=== PATIENT | female | born 2000 | race Caucasian/White ===

== ENCOUNTER 2020-10-03 16:11 | Emergency (ER) | payer BC, OTHER ==
--- NOTE | 2020-10-03 18:09 | EDM.PDOC ---
ED HPI GENERAL MEDICAL PROBLEM - General Chief Complaint: General Stated Complaint: vomiting and bloody nose Time Seen by Provider: 10/03/20 17:00 Source of Information: Reports: Patient History Limitations: Reports: No Limitations - History of Present Illness INITIAL COMMENTS - FREE TEXT/NARRATIVE: Patient says she has been having nosebleeds on and off since early this afterno on while driving to [place]. She admits that they did some heavy drinking last night does not know why the nosebleed started but she said it started bleeding a lot she got very nauseated and presented here to the ER. She denies any nasal or sinus pain states she has some nausea secondary to the blood. She has no bleeding issues that she knows of her family history of. She denies any heavy NSAID or aspirin usage. She has no other complaints at this time she denies any nasal trauma Onset: Today, Sudden Duration: Minutes:, Hour(s): Severity: Mild Improves with: Reports: None Worsens with: Reports: None Associated Symptoms: Reports: Loss of Appetite, Nausea/Vomiting. 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 Denies: Weakness, Fatigue, Diaphoresis HEENT: Reports: Nosebleed. Denies: Eye Discharge, Nose Pain, Rhinitis, Sinus Problem, Throat Pain, Vertigo Respiratory: Reports: No Symptoms Cardiovascular: Reports: No Symptoms Endocrine: Reports: No Symptoms. Denies: Fatigue GI/Abdominal: Reports: Decreased Appetite, Nausea. Denies: Abdominal Pain, Constipation, Diarrhea : Reports: No Symptoms Skin: Reports: No Symptoms Neurological: Reports: No Symptoms. Denies: Dizziness, Headache, Syncope, Weakness Psychiatric: Reports: No Symptoms Hematologic/Lymphatic: Reports: No Symptoms. Denies: Anemia, Easy Bleeding, Easy Bruising Immunologic: Reports: No Symptoms ED EXAM, GENERAL - Physical Exam Exam: See Below Exam Limited By: No Limitations General Appearance: Alert, WD/WN, No Apparent Distress Eye Exam: Bilateral Eye: EOMI, Normal Inspection, PERRL Ears: Normal External Exam, Normal Canal, Hearing Grossly Normal, Normal TMs Nose: Normal Inspection, Normal Mucosa, Other (Exam to the right nare there noted minimal approximately 2 mm bleeding site at the anterior aspect of the nare. There is no posterior bleeding noted there is no inflammation of the septal all the turbinates the left nare is within normal limits no active bleeding noted). No: No Blood Throat/Mouth: Normal Inspection, Normal Lips, Normal Teeth, Normal Gums, Normal Oropharynx, Normal Voice, No Airway Compromise, Other (No pallor noted). No: Perioral Cyanosis Head: Atraumatic, Normocephalic Neck: Normal Inspection, Supple, Non-Tender, Full Range of Motion Respiratory/Chest: No Respiratory Distress, Lungs Clear, Normal Breath Sounds, No Accessory Muscle Use Cardiovascular: Normal Peripheral Pulses, Regular Rate, Rhythm, No JVD GI/Abdominal: Normal Bowel Sounds, Soft, Non-Tender, No Organomegaly, No Distention. No: Guarding, Rigid, Rebound, Tender Extremities: Normal Inspection, Normal Range of Motion, Normal Capillary Refill, Other (No ecchymosis noted over the joints or skin) Neurological: Alert, Oriented, CN II-XII Intact, Normal Cognition, Normal Gait, Normal Reflexes, No Motor/Sensory Deficits Psychiatric: Flat Affect Skin Exam: Warm, Dry, Intact, Normal Color, No Rash Lymphatic: No Adenopathy Course - Vital Signs Text/Narrative:: The right nare was cauterized with silver nitrate stick at the site bleeding was stopped. Patient was also instructed to insert a 4 x 4 rolled up into the upper lip during her time here in the emergency room. Went back to recheck on the patient no active bleeding noted after 15 minutes. Rechecked 15 minutes after there is bleeding in the left side of the nare on the lateral aspect of the nasal fold there is minimal bleeding from a superficial site approximately 1 x 2 mm it was cauterized with silver nitrate as well bleeding was stopped patient was rechecked after no active bleeding noted. Patient was discharged with instructions if bleeding return to use ice and direct pressure to the nasal area along with rolling up another 4 x 4 and placed under her gums. She was instructed not to use any NSAIDs or aspirin for the next 3 to 4 days. She was instructed if anything changes return here to the emergency room gave verbal understanding Last Recorded V/S: Last Vital Signs Temp 37.1 C 10/03/20 16:15 Pulse 61 10/03/20 16:15 Resp 12 10/03/20 16:15 BP 105/87 10/03/20 16:15 Pulse Ox 98 10/03/20 16:15 Departure - Departure Time of Disposition: 17:55 Disposition: Home, Self-Care 01 Condition: Good Clinical Impression: Epistaxis - Discharge Information *PRESCRIPTION DRUG MONITORING PROGRAM REVIEWED*: No *COPY OF PRESCRIPTION DRUG MONITORING REPORT IN PATIENT ELY: No Instructions: Nosebleed, Adult Referrals: PCP,Unknown [Primary Care Provider] - Forms: ED Department Discharge Additional Instructions: if bleeding occurs again, apply ice and pressure to the nose, hold for an hour long til bleeding stops. If this does not work, call the hospital [phone] or return if any changes. Sepsis Event Note (ED) - Evaluation Sepsis Screening Result: No Definite Risk - Focused Exam Vital Signs: Vital Signs Temp Pulse Resp BP Pulse Ox 10/03/20 16:15 37.1 C 61 12 105/87 98 - Problem List & Annotations (1) Epistaxis SNOMED Code(s): 184161142 Code(s): R04.0 - EPISTAXIS Status: Acute
== END 2020-10-03 17:58 | disposition home or self-care (01) ==
LOC: LL.ED 16:11
DX: R04.0 Epistaxis (principal); Z88.0 Allergy status to penicillin
CPT/HCPCS: 30901; 99283; 99283-25

== ENCOUNTER 2020-10-22 18:17 | Emergency (ER) | payer OTHER, MEDICAID ==
[2020-10-22] MEDS: Meclizine 25 MG Tab PO ONE (19:04)
[2020-10-22 19:14] LABS: ANION GAP 11.1 meq/L (7-15); CHLORIDE,CL 104 mmol/L (98-107); SODIUM,NA 141 mmol/L (136-145)
--- NOTE | 2020-10-22 19:34 | EDM.PDOC ---
ED HPI GENERAL MEDICAL PROBLEM - General Chief Complaint: General Stated Complaint: dizziness, lightheaded Time Seen by Provider: 10/22/20 18:31 Source of Information: Reports: Patient History Limitations: Reports: No Limitations - History of Present Illness INITIAL COMMENTS - FREE TEXT/NARRATIVE: Patient sent to ER for eval by her employer after she had syncopal event at work. Briefly passed out at work station. Has had frontal headache for a few days. Has long history of chronic headaches for years. Worked up in [facility] prior to her moving here. No head CT performed. Mom with significant headache history. No rescue medication. Denies any focal neuro changes. Feels well otherwise. Also dizzy. That is chronic issue too for more than a year. No acute complaints otherwise. Did pass out once in school but possibly due to anxiety. - Related Data Allergies Allergy/AdvReac Type Severity Reaction Status Date / Time amoxicillin Allergy Rash Verified 10/22/20 18:18 Home Meds: Home Meds QUEtiapine [SEROquel] 25 mg PO BEDTIME 10/03/20 [History] Past Medical History Neurological History: Reports: Other (See Below) (chronic issues with headaches and dizziness. No specific triggers.) Psychiatric History: Reports: Anxiety Social & Family History - Tobacco Use Tobacco Use Status *Q: Never Tobacco User Second Hand Smoke Exposure: No - Caffeine Use Caffeine Use: Reports: None - Recreational Drug Use Recreational Drug Use: No ED ROS GENERAL - Review of Systems Review Of Systems: See Below Constitutional: Reports: No Symptoms HEENT: Reports: No Symptoms. Denies: Vertigo, Vision Change Respiratory: Reports: No Symptoms Cardiovascular: Reports: Lightheadedness, Syncope. Denies: Chest Pain, Blood Pressure Problem, Claudication, Dyspnea on Exertion, Edema, Orthopnea, Palpitations, PND GI/Abdominal: Reports: No Symptoms : Reports: No Symptoms Musculoskeletal: Reports: No Symptoms Skin: Reports: No Symptoms Neurological: Reports: Dizziness, Headache, Syncope. Denies: Confusion, Numbness, Paresthesia, Pre-Existing Deficit, Seizure, Tingling, Tremors, Trouble Speaking, Difficulty Walking, Weakness, Change in Speech, Gait Disturbance Psychiatric: Reports: No Symptoms Hematologic/Lymphatic: Reports: No Symptoms Immunologic: Reports: No Symptoms ED EXAM, GENERAL - Physical Exam Exam: See Below Exam Limited By: No Limitations General Appearance: Alert, WD/WN, No Apparent Distress Eye Exam: Bilateral Eye: EOMI, PERRL Ears: Normal External Exam, Normal Canal, Hearing Grossly Normal, Normal TMs Nose: No: Nasal Deformity, Nasal Swelling, Nasal Drainage Throat/Mouth: Normal Lips, Normal Voice, No Airway Compromise Head: Atraumatic, Normocephalic Neck: Normal Inspection, Supple, Non-Tender, Full Range of Motion Respiratory/Chest: No Respiratory Distress, Lungs Clear, Normal Breath Sounds, No Accessory Muscle Use, Chest Non-Tender Cardiovascular: Regular Rate, Rhythm, No Murmur GI/Abdominal: Soft, Non-Tender (Female) Exam: Deferred Rectal (Female) Exam: Deferred Back Exam: Normal Inspection Extremities: Normal Inspection, Normal Range of Motion, Normal Capillary Refill Neurological: Alert, Oriented, CN II-XII Intact, Normal Cognition, Normal Gait, Normal Reflexes, No Motor/Sensory Deficits Psychiatric: Normal Affect, Normal Mood Skin Exam: Warm, Dry, Intact, Normal Color Course - Vital Signs Last Recorded V/S: Last Vital Signs Temp 36.8 C 10/22/20 18:19 Pulse 64 10/22/20 18:19 Resp 16 10/22/20 18:19 BP 125/72 10/22/20 18:19 Pulse Ox 100 10/22/20 18:19 - Orders/Labs/Meds Labs: Laboratory Tests 10/22/20 10/22/20 10/22/20 Range/Units 18:31 18:31 18:54 WBC 11.3 H (4.0-10.2) K/uL RBC 4.72 (3.77-5.09) M/uL Hgb 13.5 (11.7-15.5) g/dL Hct 39.9 (34.0-46.0) % MCV 84.5 (84.0-98.0) fL MCH 28.6 (28.2-33.3) pg MCHC 33.8 (31.7-36.0) g/dL RDW 13.2 (11.2-14.1) % Plt Count 286 (150-350) K/uL Neut % (Auto) 66.6 (45.0-80.0) % Lymph % (Auto) 23.6 (10.0-50.0) % [place] % (Auto) 7.7 (2.0-14.0) % Eos % (Auto) 1.9 (0.0-5.0) % Baso % (Auto) 0.2 (0.0-2.0) % Neut # (Auto) 7.52 H (1.40-7.00) K/uL Lymph # (Auto) 2.66 (0.50-3.50) K/uL [place] # (Auto) 0.87 (0.00-1.00) K/uL Eos # (Auto) 0.22 (0.00-0.50) K/uL Baso # (Auto) 0.02 (0.00-0.20) K/uL Sodium (136-145) mmol/L Potassium (3.5-5.1) mmol/L Chloride (98-107) mmol/L Carbon Dioxide (21.0-32.0) mmol/L Anion Gap (7-15) meq/L BUN (7-18) mg/dL Creatinine (0.51-1.17) mg/dL Est Cr Clr Drug Dosing Estimated GFR (MDRD) mL/min Glucose (70-99) mg/dL Calcium (8.5-10.1) mg/dL Magnesium (1.8-2.4) mg/dL Total Bilirubin (0.2-1.0) mg/dL AST (15-37) U/L ALT (12-78) U/L Alkaline Phosphatase (46-116) IU/L Total Protein (6.4-8.2) g/dL Albumin (3.4-5.0) g/dL Specimen Type Urinvoid Urine Color Yellow Urine Appearance Clear Urine pH 5.5 (5.0-9.0) Ur Specific [place] >= 1.030 (1.005-1.030) Urine Protein Negative (NEGATIVE) mg/dL Urine Glucose (UA) Negative (NEGATIVE) mg/dL Urine Ketones Negative (NEGATIVE) mg/dL Urine Occult Blood Negative (NEGATIVE) Urine Nitrite Negative (NEGATIVE) Urine Bilirubin Negative (NEGATIVE) Urine Urobilinogen 0.2 (0.2-1.0) E.U./dL Ur Leukocyte Esterase Negative (NEGATIVE) Urine RBC Not seen /HPF Urine WBC 5-10 H /HPF Ur Epithelial Cells Few /LPF Urine Bacteria Moderate H (NONE TO FEW) /HPF Urine HCG, Qual Negative 10/22/20 Range/Units 18:54 WBC (4.0-10.2) K/uL RBC (3.77-5.09) M/uL Hgb (11.7-15.5) g/dL Hct (34.0-46.0) % MCV (84.0-98.0) fL MCH (28.2-33.3) pg MCHC (31.7-36.0) g/dL RDW (11.2-14.1) % Plt Count (150-350) K/uL Neut % (Auto) (45.0-80.0) % Lymph % (Auto) (10.0-50.0) % [place] % (Auto) (2.0-14.0) % Eos % (Auto) (0.0-5.0) % Baso % (Auto) (0.0-2.0) % Neut # (Auto) (1.40-7.00) K/uL Lymph # (Auto) (0.50-3.50) K/uL [place] # (Auto) (0.00-1.00) K/uL Eos # (Auto) (0.00-0.50) K/uL Baso # (Auto) (0.00-0.20) K/uL Sodium 141 (136-145) mmol/L Potassium 3.9 (3.5-5.1) mmol/L Chloride 104 (98-107) mmol/L Carbon Dioxide 25.9 (21.0-32.0) mmol/L Anion Gap 11.1 (7-15) meq/L BUN 15 (7-18) mg/dL Creatinine 0.97 (0.51-1.17) mg/dL Est Cr Clr Drug Dosing TNP Estimated GFR (MDRD) > 60 mL/min Glucose 91 (70-99) mg/dL Calcium 8.9 (8.5-10.1) mg/dL Magnesium 1.9 (1.8-2.4) mg/dL Total Bilirubin 0.3 (0.2-1.0) mg/dL AST 15 (15-37) U/L ALT 18 (12-78) U/L Alkaline Phosphatase 85 (46-116) IU/L Total Protein 7.8 (6.4-8.2) g/dL Albumin 4.1 (3.4-5.0) g/dL Specimen Type Urine Color Urine Appearance Urine pH (5.0-9.0) Ur Specific [place] (1.005-1.030) Urine Protein (NEGATIVE) mg/dL Urine Glucose (UA) (NEGATIVE) mg/dL Urine Ketones (NEGATIVE) mg/dL Urine Occult Blood (NEGATIVE) Urine Nitrite (NEGATIVE) Urine Bilirubin (NEGATIVE) Urine Urobilinogen (0.2-1.0) E.U./dL Ur Leukocyte Esterase (NEGATIVE) Urine RBC /HPF Urine WBC /HPF Ur Epithelial Cells /LPF Urine Bacteria (NONE TO FEW) /HPF Urine HCG, Qual Meds: Medications Discontinued Medications Generic Name Dose Route Start Last Admin Trade Name Freq PRN Reason Stop Dose Admin Meclizine HCl 25 mg 10/22/20 18:32 10/22/20 19:04 Meclizine 25 Mg Tab PO 10/22/20 18:33 25 mg ONETIME ONE Administration - Re-Assessments/Exams Free Text/Narrative Re-Assessment/Exam: 10/22/20 19:43 CBC/Chem/UA/HCG performed. HCG negative. Minimal elevation WBC. No focal evidence of acute infection noted. Patient declined additional testing including baseline head CT. Nonfocal exam. Recommend increased water intake as urine was concentrated. Recommend follow up and establishment of care with a local provider for ongoing evaluation of her headaches/dizziness. Patient agreeable with plan. Work excuse given for today. To follow up otherwise as needed if she has additional problems. Departure - Departure Time of Disposition: 19:31 Disposition: Home, Self-Care 01 Condition: Good Clinical Impression: Chronic headaches Qualifiers: Headache type: unspecified Intractability: not intractable Qualified Code(s): R51.9 - Headache, unspecified Syncope Qualifiers: Syncope type: unspecified Qualified Code(s): R55 - Syncope and collapse - Discharge Information *PRESCRIPTION DRUG MONITORING PROGRAM REVIEWED*: No *COPY OF PRESCRIPTION DRUG MONITORING REPORT IN PATIENT ELY: No Instructions: General Headache Without Cause, Syncope, [id number] Forms: ED Department Discharge, ED Return to Work/School Form Additional Instructions: Make appointment with local clinic to continue workup as needed, such as possible baseline head CT, or labs such as Lyme/tick panels. Stay hydrated! Drink more water. Look at diet as we discussed as there can be a lot of triggers for headaches/anxiety in food and snacks. Follow up otherwise as needed if you have additional problems. Sepsis Event Note (ED) - Evaluation Sepsis Screening Result: No Definite Risk - Focused Exam Vital Signs: Vital Signs Temp Pulse Resp BP Pulse Ox 10/22/20 18:19 36.8 C 64 16 125/72 100
== END 2020-10-22 19:40 | disposition home or self-care (01) ==
LOC: LL.ED 18:17
DX: R55 Syncope and collapse (principal); R51.9 Headache, unspecified; Z88.0 Allergy status to penicillin
CPT/HCPCS: 36415; 80053; 81001; 81025; 83735; 85025; 99283; 99284; A9270-GY

== ENCOUNTER 2021-02-10 21:33 | Emergency (ER) | payer MEDICAID ==
--- NOTE | 2021-02-10 22:13 | EDM.PDOC ---
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 LMP was 01/02/2021, took a home test due to missed cycle. It was positive. She has been having breast tenderness but feeling ok. SHe is with a 2 and 3 year old. She was on the pill when she became . She last had intercourse yesterday,. No unusual activity today, but noted wetness at 1900 and checked. Medium dark red blood when she wiped. Put a pantiliner in and 3 hours later it is not 1/2 saturated. Some minimal cramping in the lower abdomen. Normal bowel movement today. She has first OB appointment tomorrow. she otherwise feels fine. no fever, cough, body aches etc Onset: Today Duration: Resolved Prior to Arrival Treatments ALTERATIONS SEWER: Reports: Acetaminophen, Other (see below) Other Treatments ALTERATIONS SEWER: at 1999 today Lower Pelvic Pain Score (Numeric/FACES): 6 - Related Data Allergies Allergy/AdvReac Type Severity Reaction Status Date / Time amoxicillin Allergy Rash Verified 02/10/21 21:39 Home Meds: Home Meds . [No Known Home Meds] 02/10/21 [History] Past Medical History Neurological History: Reports: Other (See Below) (chronic issues with headaches and dizziness. No specific triggers.) Psychiatric History: Reports: Anxiety Social & Family History - Caffeine Use Caffeine Use: Reports: None ED ROS GENERAL - Review of Systems Review Of Systems: See Below Constitutional: Reports: No Symptoms HEENT: Reports: No Symptoms Respiratory: Reports: No Symptoms Cardiovascular: Reports: No Symptoms Endocrine: Reports: No Symptoms : Reports: Other (pelvic cramping with light vaginal spotting) Musculoskeletal: Reports: No Symptoms Skin: Reports: No Symptoms ED EXAM, RENAL/ - Physical Exam Exam: See Below Exam Limited By: No Limitations General Appearance: Alert, WD/WN, No Apparent Distress Eye Exam: Bilateral Eye: EOMI, PERRL Ears: Normal External Exam Nose: Normal Inspection Throat/Mouth: Normal Inspection, Normal Lips, Normal Teeth, Normal Voice Head: Atraumatic, Normocephalic Neck: Normal Inspection, Supple Respiratory/Chest: No Respiratory Distress, Lungs Clear, Normal Breath Sounds Cardiovascular: Normal Peripheral Pulses, Regular Rate, Rhythm, No Edema GI/Abdominal: Normal Bowel Sounds, Soft, Non-Tender, No Organomegaly, No Abnormal Bruit, No Mass. No: Tender (Female) Exam: Deferred Extremities: Normal Inspection Neurological: Alert, Oriented Psychiatric: Normal Affect Course - Vital Signs Last Recorded V/S: Last Vital Signs Temp 38.0 C 02/10/21 23:21 Pulse 83 02/10/21 23:21 Resp 14 02/10/21 23:21 BP 91/53 L 02/10/21 23:21 Pulse Ox 99 02/10/21 23:21 - Orders/Labs/Meds Orders: Active Orders 24 hr Category Date Time Status CHLAMYDIA AND GONORRHEA BY TMA Stat Lab 02/10/21 21:45 Received Labs: Laboratory Tests 02/10/21 02/10/21 Range/Units 21:45 23:10 HCG, Quant 217 mIU/mL Specimen Type Urincc Urine Color Yellow Urine Appearance Clear Urine pH 6.0 (5.0-9.0) Ur Specific [place] >= 1.030 (1.005-1.030) Urine Protein Negative (NEGATIVE) mg/dL Urine Glucose (UA) Negative (NEGATIVE) mg/dL Urine Ketones Negative (NEGATIVE) mg/dL Urine Occult Blood Moderate H (NEGATIVE) Urine Nitrite Negative (NEGATIVE) Urine Bilirubin Negative (NEGATIVE) Urine Urobilinogen 0.2 (0.2-1.0) E.U./dL Ur Leukocyte Esterase Negative (NEGATIVE) Urine RBC 0-5 /HPF Urine WBC 0-5 /HPF Ur Epithelial Cells Few /LPF Urine Bacteria Rare (NONE TO FEW) /HPF Urine Mucus Few H (NEGATIVE) /LPF - Re-Assessments/Exams Free Text/Narrative Re-Assessment/Exam: 02/10/21 22:14 Discussed with patient no ultrasound here tonight. vitals are stable, bleeding is stopped and was minimal. will check Urine, chlamydia and gonorrhea and quant HCG. Will try to get ultrasound set up for her tomorrow. Patient is satisfied with this plan. Departure - Departure Time of Disposition: 23:02 Disposition: Home, Self-Care 01 Condition: Good Clinical Impression: Vaginal bleeding in - Discharge Information *PRESCRIPTION DRUG MONITORING PROGRAM REVIEWED*: No *COPY OF PRESCRIPTION DRUG MONITORING REPORT IN PATIENT ELY: No Instructions: Vaginal Bleeding During , First Trimester Referrals: Arianna Tijerina PA-C [Primary Care Provider] - Forms: ED Department Discharge Additional Instructions: follow up tomorrow with your appointment. Testing for chlamydia gonorrhea are pending. You Quantitative HCG level will need to be follow by your PCP in two d ays. We will try to set up ultrasound for you tomorrow. Radiology will contact you about this Sepsis Event Note (ED) - Evaluation Sepsis Screening Result: No Definite Risk - Focused Exam Vital Signs: Vital Signs Temp Pulse Resp BP Pulse Ox 02/10/21 23:21 38.0 C 83 14 91/53 L 99 - My Orders Last 24 Hours: My Active Orders 02/10/21 21:45 CHLAMYDIA AND GONORRHEA BY TMA Stat - Assessment/Plan Last 24 Hours: My Active Orders 02/10/21 21:45 CHLAMYDIA AND GONORRHEA BY TMA Stat
[2021-02-13 13:47] LABS: C.TRACHOMATIS BY TMA Negative (Negative); N.GONORRHOEAE BY TMA Negative (Negative)
== END 2021-02-10 23:15 | disposition home or self-care (01) ==
LOC: LL.ED 21:33
DX: O20.9 Hemorrhage in early pregnancy, unspecified (principal); Z88.0 Allergy status to penicillin
CPT/HCPCS: 36415; 81001; 84702; 87491; 87591; 99283; 99284

== ENCOUNTER 2021-03-22 18:08 | Emergency (ER) | payer MEDICAID, OTHER ==
[2021-03-22] MEDS ORDERED: Lactated Ringers 1,000 ML IV ONE (18:15)
[2021-03-22] MEDS ORDERED: Sodium Chloride 0.9% 10 ML Syringe FLUSH PRN (18:15)
--- NOTE | 2021-03-22 18:17 | EDM.PDOC ---
ED HPI GENERAL MEDICAL PROBLEM - General Chief Complaint: Gastrointestinal Problem Stated Complaint: abdominal pain Time Seen by Provider: 03/22/21 18:14 Source of Information: Reports: Patient - History of Present Illness INITIAL COMMENTS - FREE TEXT/NARRATIVE: Dawna is a 20 y/o female who presents to the ER with a fever and abdominal pain. She called the clinic today about 4 pm and was advised to come to the ER. She reports having a fever for the last 2 days with it being as high as 103.5 at home. She also has developed periumbilical abdominal pain along with nausea and vomiting and also some diarrhea. She had an ectopic in early February and was hospitalized in [place]. She then tested COVID= on 02-26-2021 and was quarantined. She got better, but is now ill again. Left Abdomen Pain Score (Numeric/FACES): 6 - Related Data Allergies Allergy/AdvReac Type Severity Reaction Status Date / Time amoxicillin Allergy Rash Verified 03/22/21 18:33 Home Meds: Home Meds lamoTRIgine [Lamotrigine] 50 mg PO DAILY 03/22/21 [History] Past Medical History Neurological History: Reports: Other (See Below) (chronic issues with headaches and dizziness. No specific triggers.) Psychiatric History: Reports: Anxiety Social & Family History - Caffeine Use Caffeine Use: Reports: None Review of Systems - Review of Systems Review Of Systems: See Below Constitutional: Reports: Chills, Fever Eyes: Reports: No Symptoms Ears: Reports: No Symptoms Nose: Reports: No Symptoms Mouth/Throat: Reports: No Symptoms Respiratory: Reports: No Symptoms Cardiovascular: Reports: No Symptoms GI/Abdominal: Reports: Abdominal Pain, Diarrhea, Nausea, Vomiting Genitourinary: Reports: No Symptoms Musculoskeletal: Reports: No Symptoms Skin: Reports: No Symptoms Neurological: Reports: No Symptoms Psychiatric: Reports: No Symptoms ED EXAM, GENERAL - Physical Exam Exam: See Below General Appearance: Alert, WD/WN, No Apparent Distress (Young adult female, looks like she doesn't feel well.) Eye Exam: Bilateral Eye: PERRL Ears: Normal External Exam, Hearing Grossly Normal Nose: Normal Inspection, Normal Mucosa Throat/Mouth: Normal Inspection, Normal Lips, Normal Oropharynx, Normal Voice Head: Atraumatic, Normocephalic Neck: Normal Inspection, Supple Respiratory/Chest: No Respiratory Distress, Lungs Clear, Chest Non-Tender Cardiovascular: Normal Peripheral Pulses, Regular Rate, Rhythm, No Murmur GI/Abdominal: Normal Bowel Sounds, Soft, No Distention, Tender (periumbilical region). No: Rebound (Female) Exam: Deferred Rectal (Female) Exam: Deferred Back Exam: Normal Inspection Extremities: Normal Inspection, Normal Range of Motion, No Pedal Edema, Normal Capillary Refill Neurological: Alert, Oriented, CN II-XII Intact, Normal Cognition, Normal Gait, No Motor/Sensory Deficits Psychiatric: Normal Affect, Normal Mood Skin Exam: Warm, Dry, Intact, Normal Color, No Rash Lymphatic: No Adenopathy Course - Vital Signs Text/Narrative:: 1813 The patient was seen by the ALIGNER. Labs ordered. Will obtain an influenza and RSV test, defer COVID since she had a positive test in February and should be out of the window. NS 1 liter ordered along with Fentanyl 100mcg IVP and Zofran 4 mg IVP. 1929 All labs negative. Pain slightly better after meds and IV fluids. Will send home with Zofran ODT and supportive cares. Written instructions were given and the patient left the ER in stable condition. Last Recorded V/S: Last Vital Signs Temp 38.1 C 03/22/21 18:09 Pulse 101 H 03/22/21 19:00 Resp 18 03/22/21 19:00 BP 112/69 03/22/21 19:00 Pulse Ox 98 03/22/21 19:00 - Orders/Labs/Meds Orders: Active Orders 24 hr Category Date Time Status COVID-19/FLU A+B/RSV [MOLEC] Stat Lab 03/22/21 18:15 Ordered CULTURE BLOOD [BC] Stat Lab 03/22/21 18:15 Received CULTURE BLOOD [BC] Stat Lab 03/22/21 18:20 Received STREP SCRN A RAPID W CULT CONF [RM] Stat Lab 03/22/21 19:11 Ordered Sodium Chloride 0.9% [Normal Saline] 1,000 ml Med 03/22/21 18:42 Active IV .BOLUS Sodium Chloride 0.9% [Saline Flush] Med 03/22/21 18:15 Active 10 ml FLUSH ASDIRECTED PRN Blood Culture x2 Reflex Set [OM.PC] Stat Oth 03/22/21 18:15 Ordered Isolation [COMM] Routine Oth 03/22/21 18:40 Active Isolation [COMM] Routine Oth 03/22/21 18:40 Active Saline Lock Insert [OM.PC] Stat Oth 03/22/21 18:15 Ordered Medication Orders Sodium Chloride (Normal Saline) 1,000 mls @ 999 mls/hr IV .BOLUS ONE Stop: 03/22/21 19:42 Last Admin: 03/22/21 18:20 Dose: 999 mls/hr Documented by: JOSE Sodium Chloride (Sodium Chloride 0.9% 10 Ml Syringe) 10 ml FLUSH ASDIRECTED PRN PRN Reason: Keep Vein Open Labs: Laboratory Tests 03/22/21 03/22/21 03/22/21 Range/Units 18:35 18:35 18:35 WBC 6.9 (4.0-10.2) K/uL RBC 4.72 (3.77-5.09) M/uL Hgb 13.2 (11.7-15.5) g/dL Hct 39.7 (34.0-46.0) % MCV 84.1 (84.0-98.0) fL MCH 28.0 L (28.2-33.3) pg MCHC 33.2 (31.7-36.0) g/dL RDW 13.1 (11.2-14.1) % Plt Count 188 D (150-350) K/uL Neut % (Auto) 73.7 (45.0-80.0) % Lymph % (Auto) 12.4 (10.0-50.0) % Turner % (Auto) 12.7 (2.0-14.0) % Eos % (Auto) 0.9 (0.0-5.0) % Baso % (Auto) 0.3 (0.0-2.0) % Neut # (Auto) 5.06 (1.40-7.00) K/uL Lymph # (Auto) 0.85 (0.50-3.50) K/uL Turner # (Auto) 0.87 (0.00-1.00) K/uL Eos # (Auto) 0.06 (0.00-0.50) K/uL Baso # (Auto) 0.02 (0.00-0.20) K/uL Sodium 135 L (136-145) mmol/L Potassium 3.8 (3.5-5.1) mmol/L Chloride 101 (98-107) mmol/L Carbon Dioxide 23.1 (21.0-32.0) mmol/L Anion Gap 14.7 (7-15) meq/L BUN 12 (7-18) mg/dL Creatinine 0.91 (0.51-1.17) mg/dL Est Cr Clr Drug Dosing 77.34 mL/min Estimated GFR (MDRD) > 60 mL/min Glucose 94 (70-99) mg/dL Lactic Acid 0.8 (0.4-2.0) mmol/L Calcium 8.6 (8.5-10.1) mg/dL Total Bilirubin 0.5 (0.2-1.0) mg/dL AST 22 (15-37) U/L ALT 40 (12-78) U/L Alkaline Phosphatase 89 (46-116) IU/L Total Protein 8.2 (6.4-8.2) g/dL Albumin 4.1 (3.4-5.0) g/dL Amylase 38 (25-115) U/L Lipase 77 (73-393) U/L Specimen Type Urine Color Urine Appearance Urine pH (5.0-9.0) Ur Specific [place] (1.005-1.030) Urine Protein (NEGATIVE) mg/dL Urine Glucose (UA) (NEGATIVE) mg/dL Urine Ketones (NEGATIVE) mg/dL Urine Occult Blood (NEGATIVE) Urine Nitrite (NEGATIVE) Urine Bilirubin (NEGATIVE) Urine Urobilinogen (0.2-1.0) E.U./dL Ur Leukocyte Esterase (NEGATIVE) Urine RBC /HPF Urine WBC /HPF Ur Epithelial Cells /LPF Urine Bacteria (NONE TO FEW) /HPF Urine Mucus (NEGATIVE) /LPF Urine Other Urine HCG, Qual 03/22/21 03/22/21 Range/Units 18:45 18:45 WBC (4.0-10.2) K/uL RBC (3.77-5.09) M/uL Hgb (11.7-15.5) g/dL Hct (34.0-46.0) % MCV (84.0-98.0) fL MCH (28.2-33.3) pg MCHC (31.7-36.0) g/dL RDW (11.2-14.1) % Plt Count (150-350) K/uL Neut % (Auto) (45.0-80.0) % Lymph % (Auto) (10.0-50.0) % Turner % (Auto) (2.0-14.0) % Eos % (Auto) (0.0-5.0) % Baso % (Auto) (0.0-2.0) % Neut # (Auto) (1.40-7.00) K/uL Lymph # (Auto) (0.50-3.50) K/uL Turner # (Auto) (0.00-1.00) K/uL Eos # (Auto) (0.00-0.50) K/uL Baso # (Auto) (0.00-0.20) K/uL Sodium (136-145) mmol/L Potassium (3.5-5.1) mmol/L Chloride (98-107) mmol/L Carbon Dioxide (21.0-32.0) mmol/L Anion Gap (7-15) meq/L BUN (7-18) mg/dL Creatinine (0.51-1.17) mg/dL Est Cr Clr Drug Dosing mL/min Estimated GFR (MDRD) mL/min Glucose (70-99) mg/dL Lactic Acid (0.4-2.0) mmol/L Calcium (8.5-10.1) mg/dL Total Bilirubin (0.2-1.0) mg/dL AST (15-37) U/L ALT (12-78) U/L Alkaline Phosphatase (46-116) IU/L Total Protein (6.4-8.2) g/dL Albumin (3.4-5.0) g/dL Amylase (25-115) U/L Lipase (73-393) U/L Specimen Type Urincc Urine Color Dark yellow Urine Appearance Cloudy Urine pH 5.5 (5.0-9.0) Ur Specific [place] >= 1.030 (1.005-1.030) Urine Protein 30 H (NEGATIVE) mg/dL Urine Glucose (UA) Negative (NEGATIVE) mg/dL Urine Ketones 80 H (NEGATIVE) mg/dL Urine Occult Blood Moderate H (NEGATIVE) Urine Nitrite Negative (NEGATIVE) Urine Bilirubin Moderate H (NEGATIVE) Urine Urobilinogen 0.2 (0.2-1.0) E.U./dL Ur Leukocyte Esterase Negative (NEGATIVE) Urine RBC 0-5 /HPF Urine WBC 10-20 H /HPF Ur Epithelial Cells Many H /LPF Urine Bacteria Moderate H (NONE TO FEW) /HPF Urine Mucus Many H (NEGATIVE) /LPF Urine Other See note H Urine HCG, Qual Negative Meds: Medications Generic Name Dose Route Start Last Admin Trade Name Freq PRN Reason Stop Dose Admin Sodium Chloride 1,000 mls @ 999 mls/hr 03/22/21 18:42 03/22/21 18:20 Normal Saline IV 03/22/21 19:42 999 mls/hr .BOLUS ONE Administration Sodium Chloride 10 ml 03/22/21 18:15 Sodium Chloride 0.9% 10 Ml Syringe FLUSH ASDIRECTED PRN Keep Vein Open Discontinued Medications Generic Name Dose Route Start Last Admin Trade Name Freq PRN Reason Stop Dose Admin Fentanyl 100 mcg 03/22/21 18:33 03/22/21 18:48 Fentanyl 100 Mcg/2 Ml Sdv IVPUSH 03/22/21 18:34 100 mcg ONETIME ONE Administration Ondansetron HCl 4 mg 03/22/21 18:33 03/22/21 18:48 Ondansetron 4 Mg/2 Ml Sdv IVPUSH 03/22/21 18:34 4 mg ONETIME ONE Administration Departure - Departure Time of Disposition: 19:30 Disposition: Home, Self-Care 01 Condition: Good Clinical Impression: Vomiting, Diarrhea, Abdominal pain - Discharge Information Instructions: Ondansetron oral dissolving tablet, Nausea and Vomiting, Adult Referrals: Arianna Tijerina PA-C [Primary Care Provider] - Forms: ED Department Discharge Additional Instructions: -Rest -Diet as you can tolerate -Zofran 8mg ODT oral every 8 hours as needed #10 (ER Rx) -Over the counter meds as helpful. -Follow up with your PCP for further concerns or if you are not improving -Return to the ER as needed Sepsis Event Note (ED) - Evaluation Sepsis Screening Result: Possible Sepsis Risk - Focused Exam Vital Signs: Vital Signs Temp Pulse Resp BP Pulse Ox 03/22/21 19:00 101 H 18 112/69 98 03/22/21 18:20 103 H 18 109/65 99 03/22/21 18:09 38.1 C 110 H 18 90/59 L 99 - Problem List & Annotations (1) Vomiting SNOMED Code(s): 820524042 Code(s): R11.10 - VOMITING, UNSPECIFIED Status: Acute (2) Diarrhea SNOMED Code(s): 31517279 Code(s): R19.7 - DIARRHEA, UNSPECIFIED Status: Acute (3) Abdominal pain SNOMED Code(s): 08233146 Code(s): R10.9 - UNSPECIFIED ABDOMINAL PAIN Status: Acute Annotation/Comment:: Labs negative. A bit better after IV fluids, pain meds, and antiemetics. Favor gastroenteriritis. Discharge home with antiemetics. - Problem List Review Problem List Initiated/Reviewed/Updated: Yes - My Orders Last 24 Hours: My Active Orders 03/22/21 18:15 COVID-19/FLU A+B/RSV [MOLEC] Stat CULTURE BLOOD [BC] Stat Sodium Chloride 0.9% [Saline Flush] 10 ml FLUSH ASDIRECTED PRN Blood Culture x2 Reflex Set [OM.PC] Stat Saline Lock Insert [OM.PC] Stat 03/22/21 18:20 CULTURE BLOOD [BC] Stat 03/22/21 18:40 Isolation [COMM] Routine Isolation [COMM] Routine 03/22/21 18:42 Sodium Chloride 0.9% [Normal Saline] 1,000 ml IV .BOLUS 03/22/21 19:11 STREP SCRN A RAPID W CULT CONF [RM] Stat - Assessment/Plan Last 24 Hours: My Active Orders 03/22/21 18:15 COVID-19/FLU A+B/RSV [MOLEC] Stat CULTURE BLOOD [BC] Stat Sodium Chloride 0.9% [Saline Flush] 10 ml FLUSH ASDIRECTED PRN Blood Culture x2 Reflex Set [OM.PC] Stat Saline Lock Insert [OM.PC] Stat 03/22/21 18:20 CULTURE BLOOD [BC] Stat 03/22/21 18:40 Isolation [COMM] Routine Isolation [COMM] Routine 03/22/21 18:42 Sodium Chloride 0.9% [Normal Saline] 1,000 ml IV .BOLUS 03/22/21 19:11 STREP SCRN A RAPID W CULT CONF [RM] Stat Plan: See above
[2021-03-22] MEDS ORDERED: Ondansetron 4 MG/2 ML SDV IVPUSH ONE (18:33)
[2021-03-22] MEDS ORDERED: fentaNYL 100 MCG/2 ML SDV IVPUSH ONE (18:33)
[2021-03-22] MEDS ORDERED: Sodium Chloride 0.9% 1,000 ML IV ONE (18:42)
[2021-03-22 19:02] LABS: ANION GAP 14.7 meq/L (7-15); CHLORIDE,CL 101 mmol/L (98-107); SODIUM,NA 135 mmol/L (136-145)
== END 2021-03-22 19:15 | disposition home or self-care (01) ==
LOC: LL.ED 18:08
DX: R10.33 Periumbilical pain (principal); R19.7 Diarrhea, unspecified; R11.2 Nausea with vomiting, unspecified; Z88.0 Allergy status to penicillin
CPT/HCPCS: 36415; 80053; 81001; 81025; 82150; 83605; 83690; 85025; 87040; 87081; 87430; 87804; 87807; 96374; 96375; 99284-25; J2405; J3010; J7030

== ENCOUNTER 2023-12-16 18:50 | Emergency (ER) | payer MEDICAID ==
[2023-12-16 19:08] LABS: BASOPHILS ABSOLUTE AUTO 0.05 K/uL (0.00-0.20); BASOPHILS PERCENT AUTO 0.6 % (0.0-2.0); EOSINOPHILS ABSOLUTE AUTO 0.12 K/uL (0.00-0.50); EOSINOPHILS PERCENT AUTO 1.4 % (0.0-5.0); HEMATOCRIT 37.7 % (34.0-46.0); HEMOGLOBIN 12.6 g/dL (11.7-15.5); LYMPHOCYTES ABSOLUTE AUTO 2.07 K/uL (0.50-3.50); LYMPHOCYTES PERCENT AUTO 24.9 % (10.0-50.0); MEAN CORPUSCULAR HEMOGLOBIN 27.9 pg (28.2-33.3); MEAN CORPUSCULAR HGB CONC 33.4 g/dL (31.7-36.0); MEAN CORPUSCULAR VOLUME 83.6 fL (84.0-98.0); MONOCYTES ABSOLUTE AUTO 0.69 K/uL (0.00-1.00); MONOCYTES PERCENT AUTO 8.3 % (2.0-14.0); NEUTROPHILS ABSOLUTE AUTO 5.37 K/uL (1.40-7.00); NEUTROPHILS PERCENT AUTO 64.8 % (45.0-80.0); PLATELET COUNT,PLT 306 K/uL (150-350); RED BLOOD CELL COUNT 4.51 M/uL (3.77-5.09); RED CELL DISTRIBUTION WIDTH 12.6 % (11.2-14.1); WHITE BLOOD CELL COUNT,WBC 8.3 K/uL (4.0-10.2)
[2023-12-16 19:23] LABS: INR 1.2 (0.9-1.1); PROTHROMBIN TIME 11.4 SEC (9.0-11.1)
[2023-12-16 19:29] LABS: ALBUMIN 4.1 g/dL (3.4-5.0); ANION GAP 14.8 meq/L (7-15); BILIRUBIN TOTAL 0.3 mg/dL (0.2-1.0); CALCIUM 8.7 mg/dL (8.5-10.1); CARBON DIOXIDE,CO2 25.6 mmol/L (21.0-32.0); CREATININE 0.78 mg/dL (0.51-1.17); EST CRCL DRUG DOSING (CG) 87.96 mL/min; POTASSIUM,K 3.4 mmol/L (3.5-5.1); PROTEIN TOTAL,TP 7.7 g/dL (6.4-8.2)
[2023-12-16] MEDS: Bacitracin Oint 1 GM U/D Packet TOP ONE (19:54)
== END 2023-12-16 20:15 | disposition home or self-care (01) ==
LOC: LL.ED 18:50
DX: O9A.211 Injury, poisoning and certain other consequences of external causes complicating pregnancy, first trimester (principal); S50.312A Abrasion of left elbow, initial encounter; S70.212A Abrasion, left hip, initial encounter; Z3A.01 Less than 8 weeks gestation of pregnancy; Z79.899 Other long term (current) drug therapy; Z88.0 Allergy status to penicillin; V86.56XA Driver of dirt bike or motor/cross bike injured in nontraffic accident, initial encounter
CPT/HCPCS: 36415; 73030-LT; 73080-LT; 80053; 84702; 85025; 85610; 99284